=== PATIENT | male | born 1975 | race Caucasian/White ===

== ENCOUNTER 2019-12-30 03:19 | Emergency (ER) | payer MEDICAID ==
[~2019-12-30] VITALS: Ht 188 cm; Wt 136.4 kg
[2019-12-30 03:22] VITALS: BP 135/79
== END 2019-12-30 04:48 | disposition home or self-care (01) ==
LOC: ER 03:19
DX: Z48.01 Encounter for change or removal of surgical wound dressing (principal); E11.9 Type 2 diabetes mellitus without complications; F17.200 Nicotine dependence, unspecified, uncomplicated
CPT/HCPCS: 99281

== ENCOUNTER 2019-12-31 10:50 | Day surgery (SDC) | payer MEDICAID ==
[2019-12-31] MEDS ORDERED: LIDOcaine 2% 5ml jelly ONE (12:51)
[2019-12-31 13:00] LABS: HEMOGLOBIN A1C 9.8 % (4.5-6.2)
== END 2019-12-31 13:00 | disposition home or self-care (01) ==
LOC: WOUND CARE 10:50
PROVIDERS: ATTEND Nurse Practitioner
DX: T81.89XA Other complications of procedures, not elsewhere classified, initial encounter (principal); E11.622 Type 2 diabetes mellitus with other skin ulcer; L98.492 Non-pressure chronic ulcer of skin of other sites with fat layer exposed; E66.9 Obesity, unspecified; F17.200 Nicotine dependence, unspecified, uncomplicated; F41.9 Anxiety disorder, unspecified; K76.0 Fatty (change of) liver, not elsewhere classified; F19.10 Other psychoactive substance abuse, uncomplicated; Z68.38 Body mass index [BMI] 38.0-38.9, adult; Y83.8 Other surgical procedures as the cause of abnormal reaction of the patient, or of later complication, without mention of misadventure at the time of the procedure; Y92.234 Operating room of hospital as the place of occurrence of the external cause
CPT/HCPCS: 11042; 11045; 36415; 82948; 83036; 85651; 86140; 97605

== ENCOUNTER 2020-01-07 13:38 | Outpatient (CLI) | payer MEDICAID ==
[2020-01-07] MEDS ORDERED: LIDOcaine 2% 5ml jelly ONE (14:43)
== END 2020-01-07 16:45 | disposition home or self-care (01) ==
LOC: WOUND CARE 13:38
PROVIDERS: ATTEND Nurse Practitioner
DX: T81.89XD Other complications of procedures, not elsewhere classified, subsequent encounter (principal); E11.622 Type 2 diabetes mellitus with other skin ulcer; L98.492 Non-pressure chronic ulcer of skin of other sites with fat layer exposed; L89.151 Pressure ulcer of sacral region, stage 1; E66.9 Obesity, unspecified; F17.200 Nicotine dependence, unspecified, uncomplicated; F41.9 Anxiety disorder, unspecified; K76.0 Fatty (change of) liver, not elsewhere classified; F19.10 Other psychoactive substance abuse, uncomplicated; Z68.38 Body mass index [BMI] 38.0-38.9, adult; Y83.8 Other surgical procedures as the cause of abnormal reaction of the patient, or of later complication, without mention of misadventure at the time of the procedure
CPT/HCPCS: 36416; 97597; 97598

== ENCOUNTER 2020-01-12 12:14 | Outpatient (CLI) | payer MEDICAID | END 2020-01-12 23:59 | disposition home or self-care (01) | LOC: WOUND CARE 12:14 | PROVIDERS: ATTEND Nurse Practitioner | DX: T81.89XD Other complications of procedures, not elsewhere classified, subsequent encounter (principal); E11.622 Type 2 diabetes mellitus with other skin ulcer; L98.492 Non-pressure chronic ulcer of skin of other sites with fat layer exposed; L89.151 Pressure ulcer of sacral region, stage 1; I50.9 Heart failure, unspecified; J45.909 Unspecified asthma, uncomplicated; F17.200 Nicotine dependence, unspecified, uncomplicated; F41.9 Anxiety disorder, unspecified; K76.0 Fatty (change of) liver, not elsewhere classified; F19.10 Other psychoactive substance abuse, uncomplicated; Z68.38 Body mass index [BMI] 38.0-38.9, adult; Z86.19 Personal history of other infectious and parasitic diseases; E66.01 Morbid (severe) obesity due to excess calories; Y83.8 Other surgical procedures as the cause of abnormal reaction of the patient, or of later complication, without mention of misadventure at the time of the procedure | CPT/HCPCS: 36416; 82948; G0463 ==